=== PATIENT | female | born 1960 | race Caucasian/White ===

== ENCOUNTER → 2016-04-12 | Outpatient (CLI) | payer OTHER, MEDICAID ==
--- NOTE | 2016-04-12 11:14 | MA ---
Screening Digital Mammogram With iCAD Indication: Routine screening. Personal history of left breast invasive ductal carcinoma diagnosed in December 2014 treated with lumpectomy, chemotherapy and radiation. Technique: Standard cephalocaudal and mediolateral oblique projections are obtained. This examinati on was processed with the iCAD computer-aided detection system. Comparison: December 2014. Breast density: Type C. Findings: CAD was reviewed. Benign postsurgical and treatment architectural distortion is present in the inner left breast. The fibroadenoma and clip in the central left breast have been removed with deborah mpectomy. Right mammograms are negative. Impression: Benign mammograms. BI-RADS 2: Benign Finding. Recommendation: Routine screening is recommended in one year, as long as physical examination is eber gn in this patient with moderately dense breast parenchyma. [facility] will send a result letter to the patient. Negative mammography should not preclude additional workup of a clinically suspicious finding. The patient's information is entered into a reminder system with a target due date for her next mammo gram.
== END ==
LOC: CIMAGING 09:25
PROVIDERS: ATTEND Internal Medicine Hematology & Oncology
DX: Z12.31 Encounter for screening mammogram for malignant neoplasm of breast (principal); Z85.3 Personal history of malignant neoplasm of breast
CPT/HCPCS: G0202

== ENCOUNTER → 2016-05-03 | Outpatient (CLI) | payer OTHER, MEDICAID | LOC: BHFA 09:00 | PROVIDERS: ATTEND Internal Medicine Cardiovascular Disease | DX: R07.9 Chest pain, unspecified (principal); R06.02 Shortness of breath | CPT/HCPCS: 78452; 93017; A9500; J2785 ==

== ENCOUNTER → 2016-10-05 | Outpatient (CLI) | payer OTHER, MEDICAID | LOC: CIMAGING 10:18 | PROVIDERS: ATTEND Internal Medicine Hematology & Oncology | DX: Z12.79 Encounter for screening for malignant neoplasm of other genitourinary organs (principal); D25.9 Leiomyoma of uterus, unspecified | CPT/HCPCS: 76856-PO ==

== ENCOUNTER → 2016-10-05 | Outpatient (CLI) | payer OTHER, MEDICAID | LOC: CIMAGING 10:28 | PROVIDERS: ATTEND Surgery | DX: Z12.31 Encounter for screening mammogram for malignant neoplasm of breast (principal); Z92.21 Personal history of antineoplastic chemotherapy; Z92.3 Personal history of irradiation | CPT/HCPCS: G0202 ==

== ENCOUNTER → 2018-01-17 | Outpatient (CLI) | payer BC | LOC: CIMAGING 08:06 | PROVIDERS: ATTEND Internal Medicine Hematology & Oncology | DX: Z12.31 Encounter for screening mammogram for malignant neoplasm of breast (principal); Z85.3 Personal history of malignant neoplasm of breast ==